=== PATIENT | male | born 1940 | race Caucasian/White ===

== ENCOUNTER 2022-10-31 08:30 | Outpatient (CLI) | payer MEDICARE, OTHER ==
[2022-10-31] MEDS ORDERED: Magnevist 469MG/ML 20 ML VIAL ONE (12:10)
== END 2022-10-31 08:31 | disposition home or self-care (01) ==
LOC: CSHMRI 08:30
PROVIDERS: ATTEND Specialist
DX: R97.20 Elevated prostate specific antigen [PSA] (principal)
CPT/HCPCS: 72197; A9579

== ENCOUNTER 2025-02-01 05:26 | Emergency (ER) | payer MEDICARE, OTHER | END 2025-02-01 07:07 | disposition home or self-care (01) | LOC: CSHERS 05:26 | DX: L52 Erythema nodosum (principal); R22.41 Localized swelling, mass and lump, right lower limb; I48.91 Unspecified atrial fibrillation; Z79.01 Long term (current) use of anticoagulants ==

== ENCOUNTER 2025-06-19 20:00 | Emergency (ER) | payer MEDICARE, OTHER ==
[2025-06-19 20:43] LABS: #Basophils 0.03 10x3/uL (0.0-0.2); #Eosinophils 0.19 10x3/uL (0.0-0.5); #Monocytes 0.64 10x3/uL (0.0-1.1); #Neutrophils 5.56 10x3/uL (1.5-8.4); %Basophils 0.4 % (0.0-2.0); %Eosinophils 2.7 % (0.0-6.0); %Lymphocytes 8.8 % (18.0-47.0); %Monocytes 9.1 % (0.0-10.0); %Neutrophils 78.6 % (40.0-75.0); Hematocrit 38.3 % (38.8-50.0); Hemoglobin 13.2 g/dL (13.5-17.5); Mean Corpuscular Hemoglobin 30.6 pg (27.0-33.0); Mean Corpuscular Volume 88.7 fL (81.2-95.1); Platelet Count 193 10x3/uL (150-450); Red Blood Cell (RBC) Count 4.32 10x6/uL (4.32-5.72); White Blood Cell (WBC) Count 7.07 10x3/uL (3.5-10.5)
[2025-06-19 20:58] LABS: ALT (SGPT) 14 U/L (Less than 45); AST (SGOT) 25 U/L (11-34); Albumin 3.2 g/dL (3.1-4.5); Alkaline Phosphatase 67 U/L (40-110); Anion Gap 11 mmol/L (10-20); BUN (Urea Nitrogen) 14 mg/dL (8.4-25.7); Bilirubin, Total 0.4 mg/dL (0.3-1.2); Calc. Creatinine Clearance 0 mL/min (70-130); Calcium 8.7 mg/dL (7.8-10.44); Carbon Dioxide 25 mmol/L (23-31); Chloride 101 mmol/L (98-107); Globulin 3.1 g/dL (2.4-3.5); Glucose 128 mg/dL (83-110); Potassium 3.6 mmol/L (3.5-5.1); Sodium 133 mmol/L (136-145)
== END 2025-06-19 21:30 | disposition home or self-care (01) ==
LOC: CSHERS 20:00
DX: R50.9 Fever, unspecified (principal); R05.9 Cough, unspecified; I48.91 Unspecified atrial fibrillation
CPT/HCPCS: 71045; 80053; 83605; 85025